=== PATIENT | male | born 1955 | race Caucasian/White ===

== ENCOUNTER 2021-11-30 19:01 | Emergency (ER) | payer OTHER ==
[2021-11-30 19:27] LABS: HEMOGLOBIN 12.8 gm/dl (14.0-17.5); RED BLOOD COUNT 3.96 M/UL (4.20-5.50); WHITE BLOOD COUNT 7.6 K/UL (4.5-11.0)
[2021-11-30 19:48] LABS: BUN/CREATININE RATIO 19 (0-10)
== END 2021-11-30 22:20 | disposition home or self-care (01) ==
LOC: ER1 19:01
PROVIDERS: Family Medicine
DX: S01.01XA Laceration without foreign body of scalp, initial encounter (principal); M54.2 Cervicalgia; M54.50 Low back pain, unspecified; M54.6 Pain in thoracic spine; I10 Essential (primary) hypertension; V89.2XXA Person injured in unspecified motor-vehicle accident, traffic, initial encounter
CPT/HCPCS: 12002; 70450; 71260; 72125; 80053; 85025; 96360; 99284; Q9967